=== PATIENT | male | born 1950 | race Caucasian/White ===

== ENCOUNTER 2017-12-13 16:24 | Inpatient (IN) | payer BC, MEDICARE ==
[2017-12-13] MEDS: morphine 4 MG/ML VIAL IV (17:11)
[2017-12-13] MEDS: ONDANSETRON 4 MG INJ IV (17:12)
[2017-12-13 17:34] LABS: ADD MAN DIFF? NO
[2017-12-13 17:38] LABS: BASOPHILS % 0.1 % (0.0-2.0); HEMATOCRIT 33.8 % (42.0-52.0); HEMOGLOBIN 11.4 g/dl (14.0-18.0); LYMPHOCYTES # 1.5 10^3/ul (0.8-2.9); LYMPHOCYTES % 9.9 % (15.0-51.0); MEAN CORPUSCULAR HGB CONC 33.7 g/dl (32.0-37.0); MEAN CORPUSCULAR VOLUME 112.7 fl (82.0-101.0); MEAN PLATELET VOLUME 8.7 fl (7.4-10.4); MONOCYTE # 1.2 10^3/ul (0.3-0.9); MONOCYTES % 8.3 % (0.0-11.0); NEUTROPHIL # 12.2 10^3/ul (1.6-7.5); NEUTROPHILS % 81.3 % (39.0-77.0); PLATELET COUNT 389 10^3/UL (140-415); RED CELL DISTRIBUTION WIDTH 15.6 % (11.5-14.5)
[2017-12-13 17:57] LABS: INR 0.99; PROTIME 13.2 Sec (11.9-14.9)
[2017-12-13 17:58] LABS: PARTIAL THROMBOPLASTIN TIME 32.6 Sec (25.0-35.0)
[2017-12-13 18:03] LABS: ALANINE AMINOTRANSFERASE 38 IU/L (13-69); ALBUMIN 3.1 g/dl (3.3-4.9); ALKALINE PHOSPHATASE 146 IU/L (42-121); ANION GAP 16 (8-16); ASPARTATE AMINO TRANSFERASE 83 IU/L (15-46); BILIRUBIN,INDIRECT 0.4 mg/dl (0-1.1); BILIRUBIN,TOTAL 0.4 mg/dl (0.2-1.3); BLOOD UREA NITROGEN 13 mg/dl (7-20); CALCIUM 8.3 mg/dl (8.4-10.2); CARBON DIOXIDE 25 mmol/L (21-31); CHLORIDE 97 mmol/L (97-110); CREATINE KINASE 794 IU/L (23-200); CREATININE 0.72 mg/dl (0.61-1.24); GLUCOSE 115 mg/dl (70-220); POTASSIUM 4.1 mmol/L (3.5-5.1); SODIUM 134 mmol/L (135-144); TOTAL PROTEIN 6.2 g/dl (6.1-8.1)
[2017-12-13 18:05] LABS: LACTIC ACID 3.8 mmol/L (0.5-2.0)
[2017-12-13 18:14] LABS: TROPONIN-I 0.018 ng/ml (0.000-0.120)
[2017-12-13] MEDS: SOD CHLORIDE 0.9% 1,000 ML IV ×2 (18:24)
[2017-12-13] MEDS: ACETAMINOPHEN 325 MG TAB PO ×2 (18:26→18:38)
[2017-12-13] MEDS ORDERED: ACETAMINOPHEN 325 MG TAB PO (18:30)
[2017-12-13] MEDS ORDERED: ONDANSETRON 4 MG INJ IV ×2 (18:30→19:00)
[2017-12-13] MEDS ORDERED: NITROGLYCERIN (SL) 0.4 MG TAB SL (19:00)
[2017-12-13] MEDS ORDERED: morphine 2 MG INJ IV (19:00)
[2017-12-13] MEDS ORDERED: hydrALAzine 20 MG INJ IV (19:00)
[2017-12-13] MEDS ORDERED: ALBUTEROL/IPRATROPIUM (NEB) 3 ML AMP HHN (19:00)
[2017-12-13] MEDS ORDERED: NA PHOSPHATE/BIPHOS 133 ML ENEMA PR (19:00)
[2017-12-13] MEDS ORDERED: NACL 0.9% 3 ML SYG IV (19:00)
[2017-12-13] MEDS ORDERED: MAGNESIUM HYDROXIDE 30ML CUP PO (19:00)
[2017-12-13] MEDS ORDERED: DOCUSATE SODIUM 100 MG CAP PO (19:00)
[2017-12-13] MEDS ORDERED: LORAZEPAM 2 MG INJ IV (19:00)
[2017-12-13] MEDS: SOD CHLORIDE 0.9% 500 ML IV (19:01)
[2017-12-13] MEDS: ACETAMINOPHEN 650 MG SUPP PR (19:15)
[2017-12-13 19:42] LABS: FREE T4 (FREE THYROXINE) 2.18 ng/dl (0.78-2.44)
[2017-12-13 20:40] LABS: LACTIC ACID 2.6 mmol/L (0.5-2.0)
[2017-12-13 23:40] LABS: LACTIC ACID 1.5 mmol/L (0.5-2.0)
[2017-12-14] MEDS: LEVETIRACETAM 500 MG TAB PO ×3 (00:13→20:36)
[2017-12-14] MEDS: AZTREONAM 2 GM in SOD CHLORIDE 0.9% 100 ML IVPB ×2 (00:14→08:04)
[2017-12-14] MEDS: SOD CHLORIDE 0.9% 1,000 ML IV ×6 (00:14→20:29)
[2017-12-14] MEDS: HEPARIN 5,000 UNIT/0.5 ML VIAL SC ×3 (00:23→20:37)
[2017-12-14 03:08] LABS: LACTIC ACID 2.4 mmol/L (0.5-2.0)
[2017-12-14] MEDS: PANTOPRAZOLE (EC) 40 MG TAB PO (06:32)
[2017-12-14] MEDS: AMLODIPINE 5 MG TAB PO (08:29)
[2017-12-14 09:31] LABS: ADD UMIC YES; UR ASCORBIC ACID NEGATIVE (NEGATIVE); UR BACTERIA FEW /HPF (NONE SEEN); UR BILIRUBIN (Dip) NEGATIVE (NEGATIVE); UR BLOOD (Dip) 2+ mg/dL (NEGATIVE); UR CLARITY CLEAR (CLEAR); UR COLOR YELLOW (YELLOW); UR GLUCOSE (Dip) NEGATIVE (NEGATIVE); UR KETONES (Dip) NEGATIVE (NEGATIVE); UR LEUKOCYTE ESTERASE (Dip) NEGATIVE Leu/ul (NEGATIVE); UR NITRITE (Dip) NEGATIVE (NEGATIVE); UR RBC 0 /HPF (0-5); UR SPECIFIC GRAVITY (Dip) 1.014 (1.003-1.030); UR TOTAL PROTEIN (Dip) NEGATIVE (NEGATIVE); UR UROBILINOGEN (Dip) 1+ mg/dL (NEGATIVE); UR WBC 1 /HPF (0-5)
[2017-12-14 09:41] LABS: ADD MAN DIFF? NO
[2017-12-14 09:47] LABS: BASOPHILS % 0.2 % (0.0-2.0); EOSINOPHILS % 0.1 % (0.0-7.0); HEMATOCRIT 34.6 % (42.0-52.0); HEMOGLOBIN 11.2 g/dl (14.0-18.0); LYMPHOCYTES # 1.8 10^3/ul (0.8-2.9); LYMPHOCYTES % 15.8 % (15.0-51.0); MEAN CORPUSCULAR HEMOGLOBIN 36.8 pg (29.0-33.0); MEAN CORPUSCULAR HGB CONC 32.4 g/dl (32.0-37.0); MEAN CORPUSCULAR VOLUME 113.8 fl (82.0-101.0); MEAN PLATELET VOLUME 8.9 fl (7.4-10.4); MONOCYTE # 1.5 10^3/ul (0.3-0.9); MONOCYTES % 12.7 % (0.0-11.0); NEUTROPHIL # 8.2 10^3/ul (1.6-7.5); NEUTROPHILS % 70.8 % (39.0-77.0); PLATELET COUNT 361 10^3/UL (140-415); RED BLOOD COUNT 3.04 10^6/ul (4.70-6.10); RED CELL DISTRIBUTION WIDTH 15.6 % (11.5-14.5)
[2017-12-14 09:47] LABS: WHITE BLOOD COUNT 11.5 10^3/ul (4.8-10.8)
[2017-12-14 10:11] LABS: HEMOGLOBIN A1C 4.9 % (0-5.9)
[2017-12-14 10:14] LABS: LACTIC ACID 2.5 mmol/L (0.5-2.0)
[2017-12-14 10:28] LABS: ANION GAP 16 (8-16); BLOOD UREA NITROGEN 11 mg/dl (7-20); CALCIUM 7.8 mg/dl (8.4-10.2); CARBON DIOXIDE 23 mmol/L (21-31); CHLORIDE 104 mmol/L (97-110); CREATININE 0.59 mg/dl (0.61-1.24); GLUCOSE 82 mg/dl (70-220); MAGNESIUM 1.1 mg/dl (1.7-2.5); PHOSPHORUS 3.8 mg/dl (2.5-4.9); POTASSIUM 3.8 mmol/L (3.5-5.1); SODIUM 139 mmol/L (135-144)
[2017-12-14 10:58] LABS: CHOLESTEROL 106 mg/dl (100-200)
[2017-12-14 10:58] LABS: CHOL/HDL RATIO 2.7 RATIO; HDL CHOLESTEROL 38 mg/dl (30-78); LDL CHOLESTEROL,CALCULATED 54 mg/dl; TRIGLYCERIDES 71 mg/dl (0-149)
[2017-12-14 11:05] LABS: CREATINE KINASE 2974 IU/L (23-200)
[2017-12-14] MEDS: MAGNESIUM SULFATE 4 GM/100 ML 100 ML IVPB (12:34)
[2017-12-14] MEDS: ACETAMINOPHEN 325 MG TAB PO (12:46)
[2017-12-14 12:52] LABS: LACTIC ACID 2.4 mmol/L (0.5-2.0)
[2017-12-14 15:04] LABS: LACTIC ACID 1.5 mmol/L (0.5-2.0)
[2017-12-14] MEDS ORDERED: VANCOMYCIN IV PER PHARMACY XX (19:00)
[2017-12-14] MEDS: AMPHOTERICIN B LIPOSOME 300 MG in DEXTROSE 5% 300 ML IVPB (20:47)
[2017-12-14] MEDS: IOHEXOL 14.3 MG(I)/ML (ADULT) BTL PO (21:28)
[2017-12-14] MEDS: VANCOMYCIN 1.25 GM in SOD CHLORIDE 0.9% 250 ML IVPB (22:30)
[2017-12-15] MEDS: SOD CHLORIDE 0.9% 1,000 ML IV ×3 (00:50→14:10)
[2017-12-15] MEDS: PIPER-TAZO 3.375 GM IV (PMX) 100 ML IVPB ×5 (01:14→23:17)
[2017-12-15] MEDS ORDERED: PENDING SANTYL ORDER FOR WOUND CARE XX (03:30)
[2017-12-15] MEDS: PANTOPRAZOLE (EC) 40 MG TAB PO (05:41)
[2017-12-15 06:53] LABS: ADD MAN DIFF? NO
[2017-12-15 06:56] LABS: WHITE BLOOD COUNT 11.1 10^3/ul (4.8-10.8)
[2017-12-15 06:56] LABS: BASOPHILS % 0.3 % (0.0-2.0); EOSINOPHILS % 0.3 % (0.0-7.0); HEMATOCRIT 29.7 % (42.0-52.0); HEMOGLOBIN 10.2 g/dl (14.0-18.0); LYMPHOCYTES # 1.8 10^3/ul (0.8-2.9); LYMPHOCYTES % 16.4 % (15.0-51.0); MEAN CORPUSCULAR HEMOGLOBIN 38.9 pg (29.0-33.0); MEAN CORPUSCULAR HGB CONC 34.3 g/dl (32.0-37.0); MEAN CORPUSCULAR VOLUME 113.4 fl (82.0-101.0); MEAN PLATELET VOLUME 8.6 fl (7.4-10.4); MONOCYTES % 9.1 % (0.0-11.0); NEUTROPHIL # 8.1 10^3/ul (1.6-7.5); NEUTROPHILS % 73.4 % (39.0-77.0); PLATELET COUNT 348 10^3/UL (140-415); RED BLOOD COUNT 2.62 10^6/ul (4.70-6.10); RED CELL DISTRIBUTION WIDTH 15.6 % (11.5-14.5)
[2017-12-15 07:39] LABS: CREATINE KINASE 950 IU/L (23-200); MAGNESIUM 1.5 mg/dl (1.7-2.5)
[2017-12-15 07:39] LABS: PHOSPHORUS 3.3 mg/dl (2.5-4.9)
[2017-12-15 07:40] LABS: ANION GAP 11 (8-16); BLOOD UREA NITROGEN 11 mg/dl (7-20); CALCIUM 7.9 mg/dl (8.4-10.2); CARBON DIOXIDE 25 mmol/L (21-31); CHLORIDE 104 mmol/L (97-110); CREATININE 0.61 mg/dl (0.61-1.24); GLUCOSE 92 mg/dl (70-220); POTASSIUM 3.6 mmol/L (3.5-5.1); SODIUM 136 mmol/L (135-144)
[2017-12-15] MEDS: LEVETIRACETAM 500 MG TAB PO (08:42)
[2017-12-15] MEDS: AMLODIPINE 5 MG TAB PO (08:43)
[2017-12-15] MEDS: VANCOMYCIN 1.25 GM in SOD CHLORIDE 0.9% 250 ML IVPB ×2 (08:52→21:08)
[2017-12-15] MEDS: HEPARIN 5,000 UNIT/0.5 ML VIAL SC ×2 (08:57→21:00)
[2017-12-15] MEDS: MULTIVITAMINS THERAPEUTIC TAB PO (11:05)
[2017-12-15] MEDS: HYDROCODONE/APAP (5/325) TAB PO (11:06)
[2017-12-15] MEDS: MAGNESIUM SULFATE 2 GM/50 ML 50 ML IVPB (15:22)
[2017-12-15] MEDS: LIDOCAINE 1% (MPF) 5 ML VIAL (15:27)
[2017-12-15] MEDS: AMPHOTERICIN B LIPOSOME 300 MG in DEXTROSE 5% 300 ML IVPB (21:08)
[2017-12-15] MEDS: LEVETIRACETAM 750 MG TAB PO (23:16)
[2017-12-16] MEDS: SOD CHLORIDE 0.9% 1,000 ML IV ×2 (00:55→11:41)
[2017-12-16] MEDS: PIPER-TAZO 3.375 GM IV (PMX) 100 ML IVPB ×3 (05:53→18:00)
[2017-12-16] MEDS: PANTOPRAZOLE (EC) 40 MG TAB PO (05:53)
[2017-12-16 06:50] LABS: ADD MAN DIFF? NO
[2017-12-16 07:23] LABS: VANCOMYCIN,TROUGH 18.2 ug/ml (10.0-20.0)
[2017-12-16 07:27] LABS: ANION GAP 9 (8-16); BLOOD UREA NITROGEN 14 mg/dl (7-20); CALCIUM 7.8 mg/dl (8.4-10.2); CARBON DIOXIDE 24 mmol/L (21-31); CHLORIDE 108 mmol/L (97-110); CREATINE KINASE 569 IU/L (23-200); CREATININE 0.72 mg/dl (0.61-1.24); GLUCOSE 94 mg/dl (70-220); POTASSIUM 3.3 mmol/L (3.5-5.1); SODIUM 138 mmol/L (135-144)
[2017-12-16 07:53] LABS: BASOPHILS % 0.3 % (0.0-2.0); EOSINOPHILS % 0.4 % (0.0-7.0); HEMOGLOBIN 9.8 g/dl (14.0-18.0); LYMPHOCYTES # 1.9 10^3/ul (0.8-2.9); LYMPHOCYTES % 17.9 % (15.0-51.0); MEAN CORPUSCULAR HEMOGLOBIN 38.3 pg (29.0-33.0); MEAN CORPUSCULAR HGB CONC 33.8 g/dl (32.0-37.0); MEAN CORPUSCULAR VOLUME 113.3 fl (82.0-101.0); MEAN PLATELET VOLUME 8.6 fl (7.4-10.4); MONOCYTE # 1.4 10^3/ul (0.3-0.9); MONOCYTES % 12.9 % (0.0-11.0); NEUTROPHIL # 7.2 10^3/ul (1.6-7.5); PLATELET COUNT 314 10^3/UL (140-415); RED BLOOD COUNT 2.56 10^6/ul (4.70-6.10); RED CELL DISTRIBUTION WIDTH 15.4 % (11.5-14.5)
[2017-12-16 07:53] LABS: WHITE BLOOD COUNT 10.6 10^3/ul (4.8-10.8)
[2017-12-16 08:52] LABS: PHOSPHORUS 3.4 mg/dl (2.5-4.9)
[2017-12-16 08:58] LABS: MAGNESIUM < 0.2 mg/dl (1.7-2.5)
[2017-12-16] MEDS: HEPARIN 5,000 UNIT/0.5 ML VIAL SC ×2 (09:00→21:23)
[2017-12-16] MEDS: LEVETIRACETAM 750 MG TAB PO ×2 (09:41→21:16)
[2017-12-16] MEDS: AMLODIPINE 5 MG TAB PO (09:41)
[2017-12-16] MEDS: MULTIVITAMINS THERAPEUTIC TAB PO (09:41)
[2017-12-16] MEDS: NICOTINE (21 MG/24 HR) PATCH TRANSDERM (09:42)
[2017-12-16 10:24] LABS: MAGNESIUM 1.6 mg/dl (1.7-2.5)
[2017-12-16] MEDS: MAGNESIUM SULFATE 1 GM/D5W 100 ML IVPB (11:42)
[2017-12-16] MEDS: AMPHOTERICIN B LIPOSOME 300 MG in DEXTROSE 5% 300 ML IVPB (20:16)
[2017-12-16] MEDS: DEXTROSE 5%-0.45% NACL 1,000 ML IV (20:16)
[2017-12-17] MEDS: PIPER-TAZO 3.375 GM IV (PMX) 100 ML IVPB
== END 2017-12-16 23:55 | disposition short-term general hospital (02) | DRG 871 ==
LOC: E/R 16:24 → ICU 12-15 13:33 → 5EC 18:26 → 6WM 12-14 20:10
PROC: 0W9G3ZX Drainage of Peritoneal Cavity, Percutaneous Approach, Diagnostic (ICD-10-PCS; principal; 2017-12-15)
DX: A41.9 Sepsis, unspecified organism (principal); G93.41 Metabolic encephalopathy; G06.0 Intracranial abscess and granuloma; G04.81 Other encephalitis and encephalomyelitis; E87.2 Acidosis; R18.8 Other ascites; J32.4 Chronic pansinusitis; R65.20 Severe sepsis without septic shock; T79.6XXA Traumatic ischemia of muscle, initial encounter; G40.909 Epilepsy, unspecified, not intractable, without status epilepticus; W18.30XA Fall on same level, unspecified, initial encounter; Y92.018 Other place in single-family (private) house as the place of occurrence of the external cause; Z85.118 Personal history of other malignant neoplasm of bronchus and lung
CPT/HCPCS: 36415; 70450; 70486; 70551; 71045; 71250; 72125; 73510; 73700; 74176; 80048; 80053; 80061; 80202; 81001; 82550; 83036; 83605; 83735; 84100; 84439; 84443; 84484; 85025; 85610; 85730; 86606; 87040; 87070; 87081; 87086; 87102; 92610; 93005; 93306; 96374; 96375; 97163; 97167; 99291-25